=== PATIENT | male | born 1955 | race Caucasian/White ===

== ENCOUNTER 2018-01-28 08:47 | Inpatient (IN) | payer BC ==
--- NOTE | 2018-01-19 20:28 | HP ---
HISTORY AND PHYSICAL: DATE OF ADMISSION/SURGERY: 01/28/18 DATE OF OFFICE VISIT: 01/18/18 SURGEON: Lyric Sanchez MD * (DICTATED BY HUMZA KILLIAN) PROCEDURE: Left total hip arthroplasty. CHIEF COMPLAINT: Left hip pain. HISTORY OF PRESENT ILLNESS: Mr. Rapp is a 62-year-old gentleman with complaints of left hip pain. He has failed conservative treatment and elected to proceed with a left total hip arthroplasty. PAST MEDICAL HISTORY: Hyperlipidemia. PAST SURGICAL HISTORY: Skin graft on the left leg. CURRENT MEDICATIONS: Pravastatin sodium 20 mg q.h.s. ALLERGIES: None. FAMILY HISTORY: Denies. SOCIAL HISTORY: He is a 62-year-old gentleman, lives with his . He does not smoke or use drugs. Uses occasional alcohol. REVIEW OF SYSTEMS: A complete 14-point review of systems was reviewed with the patient. It was all negative or noncontributory. PHYSICAL EXAMINATION GENERAL: He is well-developed, well-nourished, in no acute distress. He is alert and oriented x3. Pleasant mood and appropriate affect. VITAL SIGNS: He stands 5 feet 4 inches tall, weighs 130 pounds, his blood pressure 142/82, and his heart rate is 64. HEENT: Normocephalic, atraumatic. NECK: Supple. No palpable lymph nodes. PULMONARY: The lungs are clear to auscultation bilaterally. CARDIO: Regular rate and rhythm. Strong S1, S2. ABDOMEN: Soft, nontender, and nondistended. MUSCULOSKELETAL: Left lower extremity: The skin is intact. There are no open wounds or abrasions. He walks with an antalgic-type gait favoring his left hip. He has decreased internal and external rotation of the left hip. He has 2 + dorsalis pedis pulse, intact sensation. His lower extremity muscle group strengths are intact at 5/5. ASSESSMENT AND PLAN: Mr. Rapp is a 62-year-old gentleman with end-stage osteoarthritis of the left hip. He has failed conservative treatment and elected to proceed with a left total hip arthroplasty, which is scheduled for with Dr. Sanchez. Dr. Sanchez discussed the risks and benefits of the surgery at today's visit and all of his questions were answered. He will follow up with Dr. Sanchez 2 weeks after the surgery. HUMZA KILLIAN [id number]/[facility] #: [id number] ELIZABETH
[~2018-01-28 08:47] MED LIST: Acetaminophen IV 1GM/100ML * 1,000 MG/100 ML VIAL IVPB ONE; Buffered Lidocaine 0.9% SYRIN* 5 ML/SYR SYRINGE INTRADERM ONE; Dexamethasone IV* 4 MG/ML 1 ML (4 MG) IV SLOW PU ONE; Famotidine TAB* 20 MG PO ONE; Gabapentin CAP(*) 300 MG PO ONE; celeCOXIB CAP* 200 MG PO ONE
--- OUTSIDE RECORDS SUMMARY | 2018-01-28 08:52 | XMS REPORT ---
:1955 External Reference #:[id number] Author Organization [facility] Address [address] [place] [address] [place] [address] Phone [phone] Care Team Providers Name Role Phone Enoc Nagy D.O. Primary Care Physician Unavailable Payers Type Date Identification Numbers Payment Provider Subscriber Commercial Policy Number: [id number] [employer] Ovidio Rapp PayID: [id number] [address] [place] [id number] Problems Date Description Provider Status Onset: 12/18/2017 Localized, primary osteoarthritis of the Lyric Sanchez M.D. Active pelvic region and thigh Social History Type Date Description Comments Smoking denies smoking Allergies, Adverse Reactions, Alerts Date Description Reaction Status Severity Comments 01/18/2018 NKDA active Medications Medication Date Status Form Strength Qnty SIG Indications Ordering Provider Pravastatin 00/00/00 Active Tablets 20mg take one Unknown Sodium 00 tablet by mouth at bedtime Vital Signs Date Vital Result Comment 01/18/2018 Height 64.5 inches 5'4.50" Weight 131.00 lb Heart Rate 64 /min BP Systolic 140 mmHg BP Diastolic 82 mmHg BMI (Body Mass Index) 22.1 kg/m2 12/18/2017 Height 64.4 inches 5'4.40" Weight 130.00 lb Heart Rate 76 /min BP Systolic 124 mmHg BP Diastolic 74 mmHg Pain Level 9 BMI (Body Mass Index) 22.0 kg/m2 Results Description No Information Procedures Description No Information Encounters Type Date Location Provider CPT E/M Dx Office Visit 12/18/2017 [facility] Sanchez M.D. [id number] M25.551 10:[facility]a [facility] M25.552 M16.11 M16.12 Office Visit 02/18/2017 3:00p [facility] M.D. 41643 M16.12 [facility] Plan of Care Future Appointment(s):02/10/2018 9:30 am - Lyric Sanchez M.D. at [facility]01/28/2018 12:30 pm - Pepe Pascal PA-C at [facility]01/28/2018 12:30 pm - HUMZA Burrows at [facility]01/28/2018 12:30 pm - Lyric Sanchez M.D. [facility]01/18/2018 - Lyric Sanchez M.D.M25.552 Pain in left hipFollow up:Follow up: 2 weeks after mpahxbsR34.12 Unilateral primary osteoarthritis, left hip
[2018-01-28] MEDS ORDERED: Dexamethasone IV* 4 MG/ML 1 ML (4 MG) ONE (09:03)
[2018-01-28] MEDS ORDERED: Famotidine TAB* 20 MG ONE (09:03)
[2018-01-28] MEDS ORDERED: Gabapentin CAP(*) 300 MG ONE (09:03)
[2018-01-28] MEDS ORDERED: celeCOXIB CAP* 100 MG ONE (09:03)
[2018-01-28] MEDS ORDERED: ceFAZolin 2 GM in NS PREMIX(*) 2 GM/100 ML BAG IVPB ONE (09:04)
[2018-01-28] MEDS ORDERED: Midazolam* 1 MG/ML 5 ML VIAL (5 MG) ONE (09:09)
[2018-01-28] MEDS ORDERED: fentaNYL* 50 MCG/ML 2 ML VIAL (100 MCG VIAL) ONE ×2 (09:09→11:14)
[2018-01-28] MEDS ORDERED: Ondansetron INJ* 2 MG/ML VIAL ONE (09:10)
[2018-01-28] MEDS ORDERED: Propofol* 10 MG/ML 20 ML BTL IV PUSH ONE (09:10)
[2018-01-28] MEDS ORDERED: Acetaminophen IV 1GM/100ML * 100 ML ONE (09:31)
[2018-01-28] MEDS ORDERED: ROPIVACAINE 5 MG/ML 30 ML BTL (0.5%) ONE ×2 (09:47→09:54)
[2018-01-28] MEDS ORDERED: Ropivacaine (OR use only) 2 MG/ML 10 ML ONE (09:54)
[2018-01-28] MEDS ORDERED: Bupivacaine 0.5% SDV PF* 30ML VIAL ONE (10:27)
[2018-01-28] MEDS ORDERED: Bupivacaine 0.25% SDV PF* 10 ML VIAL INJ ONE (11:14)
[2018-01-28] MEDS ORDERED: Morphine INJ* 2 MG/ML 1 ML SYRINGE (TWO MG - NEW SYRINGE VERSION) IV PRN (13:00)
--- NOTE | 2018-01-28 15:00 | RAD ---
HISTORY: left total hip replacement COMPARISONS: None VIEWS: 1 , Single frontal view of the pelvis FINDINGS: Single frontal portable view of the pelvis performed during hip arthroplasty at 12:06 PM demonstrates a left hip arthroplasty with a temporary femoral sizing component. IMPRESSION: LIMITED PORTABLE VIEW OF THE PELVIS TO HIP ARTHROPLASTY
--- NOTE | 2018-01-28 15:34 | RAD ---
Indication: Medial RIGHT knee patella pain for 18 months post fall. Comparison: None. Technique: RIGHT knee: AP, tunnel, lateral, sunrise views. Report: Small joint effusion. Negative for fracture or malalignment. Minimal patellofemoral joint osteophytosis without significant joint space narrowing. Unremarkable soft tissue contours. IMPRESSION: #. Small joint effusion. #. Minimal patellofemoral joint osteoarthritis.
[2018-01-28] MEDS ORDERED: Ondansetron INJ* 2 MG/ML VIAL IV PRN (20:14)
[2018-01-28] MEDS ORDERED: Warfarin TAB(*) 6 MG PO ONE (21:00)
[2018-01-28] MEDS ORDERED: oxyCODONE/Acetamin 5/325 MG* TAB ONE (22:14)
[2018-01-28] MEDS: Docusate CAP* 100 MG PO SCH (22:19)
[2018-01-28] MEDS: CMC:Pravastatin (NF) 20 MG TAB PO SCH (22:20)
[2018-01-28] MEDS: ceFAZolin 1 GM* Q8H x 3 doses IVPB SCH (22:21)
[2018-01-29] MEDS: ceFAZolin 1 GM* Q8H x 3 doses IVPB SCH ×2 (02:32→08:49)
[2018-01-29] MEDS: traMADol TAB* 50 MG PO PRN ×2 (02:36→06:33)
[2018-01-29 08:28] LABS: INR 1.12 (0.77-1.02)
[2018-01-29 08:30] LABS: ABS Basophils 0 10^3/ul (0-0.2); ABS Eosinophils 0 10^3/ul (0-0.6); ABS Lymphocytes 1.1 10^3/ul (1.0-4.8); ABS Monocytes 1.2 10^3/ul (0-0.8); ABS Neutrophils 9.8 10^3/ul (1.5-7.7); ABS Nucleated RBC 0 10^3/ul; Eosinophil % 0.1 % (0-6); Hematocrit 35 % (42-52); Lymphocyte % 9.3 % (25-47); Mean Corpuscular HGB Conc 34 g/dl (31-36); Mean Corpuscular Hemoglobin 34 pg (27-31); Mean Corpuscular Volume 98 fL (80-94); Mean Platelet Volume 8.2 um3 (7.4-10.4); Nucleated Red Blood Cells % 0; Platelet Count 238 10^3/ul (150-450); Red Blood Count 3.56 10^6/ul (4.00-5.40); Red Cell Distribution Width 13 % (10.5-15); White Blood Count 12.2 10^3/ul (3.5-10.8)
[2018-01-29 08:35] LABS: EGFR Non-African American 100.2 (>60)
[2018-01-29] MEDS: Docusate CAP* 100 MG PO SCH ×2 (08:48→22:05)
[2018-01-29] MEDS: oxyCODONE/Acetamin 5/325 MG* TAB PO PRN ×3 (08:48→18:46)
--- NOTE | 2018-01-29 09:40 | PN ---
Progress Note - Progress Note Date of Service: 01/29/18 SOAP: Subjective: POD #1 Left PANKAJ, doing well. Pain controlled. Denies CP/SOB, n/v, f/c. Did feel some lightheadedness last night while trying to ambulate Objective: Vitals: Temp Pulse Resp BP Pulse Ox 98.2 F 64 16 110/64 100 01/29/18 07:28 01/29/18 07:28 01/29/18 08:49 01/29/18 07:28 01/29/18 07:28 Gen: A&Ox3, NAD at rest laying in bed Left hip: Dressing D/I, some dried blood to mid portion. Thigh and calf soft, NT. +f/e at ankle and MTPs. N/V intact Labs: Laboratory Results - last 24 hr 01/29/1818 01/29/18 07:56 07:56 07:56 WBC 12.2 H RBC 3.56 L Hgb 12.0 L Hct 35 L MCV 98 H MCH 34 H MCHC 34 RDW 13 Plt Count 238 MPV 8.2 Neut % (Auto) 80.5 Lymph % (Auto) 9.3 L Jefferson % (Auto) 10.0 H Eos % (Auto) 0.1 Baso % (Auto) 0.1 Absolute Neuts (auto) 9.8 H Absolute Lymphs (auto) 1.1 Absolute Monos (auto) 1.2 H Absolute Eos (auto) 0 Absolute Basos (auto) 0 Absolute Nucleated RBC 0 Nucleated RBC % 0 INR (Anticoag Therapy) 1.12 H BUN 12 Creatinine 0.78 Est GFR ( Amer) 121.3 Est GFR (Non-Af Amer) 100.2 Assessment: POD #1 Left PANKAJ Plan: PT/OT with posterior hip precautions INR 1.12, Coumadin 6mg tonight with lovenox bridge Possible d/c home tomorrow
[2018-01-29] MEDS: Enoxaparin(*) 30 MG/0.3 ML SYR SUBCUT SCH (12:27)
--- NOTE | 2018-01-29 16:33 | OP ---
OPERATIVE REPORT: DATE OF OPERATION: 01/28/18 DATE OF : 51 ATTENDING SURGEON: Lyric Sanchez MD. SCRAP BALER: HUMZA Oviedo. Ms. Smith did help throughout the procedure with preparation of the leg, wound retraction, manipul ation of the hip and wound closure. ANESTHESIOLOGIST: Dr. Kenney. ANESTHESIA: Spinal. PRE-OP DIAGNOSIS: Severe endstage degenerative osteoarthritis of the left hip joint. POST-OP DIAGNOSIS: Severe endstage degenerative osteoarthritis of the left hip joint OPERATIVE PROCEDURE: Left total hip arthroplasty. BRIEF HISTORY/INDICATIONS: Mr. Rapp is a 62-year-old gentleman with years of increasingly severe left hip pain. He failed conservative treatment with antiinflammatories, pain medication and physica l therapy. Radiographs showed bone- on-bone arthritis. Due to the continued pain and decreased qual ity of life, he elected to undergo left total hip arthroplasty. Informed consent was obtained from t he patient. He understood the risks of surgery included but were not limited to bleeding, infection, damage to nearby structures, continued pain, need for further surgery, intraoperative fracture, nerv e palsy, hardware failure or loosening, dislocation, leg length discrepancy, stroke, heart attack, bl ood clot, and . He wished to proceed. ESTIMATED BLOOD LOSS: 200 cc. COMPLICATIONS: None. SPECIMEN: Femoral head and acetabular reaming sent to Pathology. HARDWARE USED: This is uncemented Miriam total hip arthroplasty hardware. For the cup, 52D Tritani um cluster hole shell; a single 20-mm screw was used. For the stem, an Accolade TMZF size 2.5 with a 127-degree neck. For the insert, a Trident X3 10-degree polyethylene insert 32D. For the head, a B iolox delta 32 +0 ceramic V40 femoral head. INTRAOPERATIVE FINDINGS: Intraoperatively, the patient was noted to have severe endstage arthritis w ith complete loss of cartilage along the femoral head and acetabulum. He was noted to have a somewha t shallow and dysplastic acetabulum. DESCRIPTION OF PROCEDURE: Mr. Rapp was identified in the preanesthesia unit. His left lower extre mity was marked as the correct operative side. Informed consent was signed and placed in the chart. The patient was taken to the operating room and placed under spinal anesthesia. A Elizondo catheter wa s placed. The patient was placed in the right lateral decubitus position on the peg board with all b anne-marie prominences well padded. Left lower extremity was prepped and draped in the usual sterile fashio n. Preop time-out was made to correctly identify the patient, side, and site. Appropriate periopera tive antibiotics were given within 1 hour of incision. A 10-cm posterior hip incision was made with a 10-blade and carried down to the lateral fascial layer . A new 10-blade was used to make lateral fascial layer incision inline with the skin incision. Rosalind sukhjinderley retractor was placed. The piriformis and conjoint tendons were elevated off the posterolateral femur using electrocautery. These were tagged with #5 Ethibond. Next, electrocautery was used to m melissa a standard posterolateral capsular flap and this is also tagged with #5 Ethibond. The hip was ca refully dislocated. Lesser trochanter center of the femoral head measured 52 mm. An oscillating saw was used to make the appropriate femoral neck cut. Femoral head was removed. The femur was retract ed anteriorly. After appropriate placement of retractors, the acetabulum was well visualized. Long-rollins ndled knife was used to sharply remove any remaining labrum from the acetabular rim. The acetabulum was sequentially reamed up to a size 51. The 51 reamer obtained bleeding subchondral bone bed. Acetabulum was noted to be shallow and dysplastic. A 51 trial had good fit with appropriat e anteversion and abduction angle. Final implant chosen was a Tritanium cluster hole shell 52D. Thi s was impacted into the acetabulum without difficulty. The cup was stable with appropriate anteversi on and abduction angle. A single 20-mm screw was placed in the superior posterior quadrant for extra stability. Next, attention was turned to preparation of the femoral canal. A canal finder was used to enter the proximal femur. Proximal femur was sequentially broached up to a size 2.5. The 2.5 broach had good fit with appropriate anteversion. A 127 neck trial was placed with a 32+0 head trial. Lesser troch to center of femoral head measured 53 mm. The hip was reduced and taken through range of motion. T he hip was stable in all positions. There was a good soft tissue tension and appropriate leg length. The hip was carefully dislocated. All trials were removed. Final implant chosen was an Accolade TMZ F size 2.5 with a 127-degree neck. This was impacted into the femoral canal. There was appropriate stability and anteversion. A Biolox delta ceramic V40 femoral head 32+0 was chosen as the correct f emoral head and impacted onto the neck. The lesser troch to center of the femoral head measured 56 m m. The hip was reduced and taken through range of motion. The hip was stable in all positions. The hip was copiously irrigated with sterile saline. Soft tissue tension and leg lengths were appropria te. The previously tagged capsule and tendons were re-approximated to the posterolateral femur through 2 trochanteric drill holes. Lateral fascial layer was closed using interrupted #1 Vicryls. The rest o f the incision was closed in a layered fashion using 0 and 2-0 Vicryls. Skin was closed using runnin g 3-0 Monocryl and Dermabond. Sterile Adaptic, 4x4s, and paper tape were used to cover the incision. The patient's anesthesia was reversed without difficulty. He was taken to the PACU in stable condi tion. Intended weightbearing will be weightbearing as tolerated. Intended DVT prophylaxis will be C oumadin with a Lovenox bridge. [id number]/[facility] #: [id number]
[2018-01-29] MEDS ORDERED: Warfarin TAB(*) 6 MG PO SCH (17:00)
[2018-01-29] MEDS: CMC:Pravastatin (NF) 20 MG TAB PO SCH (22:05)
[2018-01-29] MEDS: Magnesium Hydroxide LIQ* 30 ML UDC PO PRN (22:05)
[2018-01-30 06:21] LABS: Hematocrit 32 % (42-52); Hemoglobin 11.2 g/dl (14.0-18.0)
[2018-01-30 06:27] LABS: INR 2.27 (0.77-1.02)
--- NOTE | 2018-01-30 10:05 | PN ---
Progress Note - Progress Note Date of Service: 01/30/18 SOAP: Subjective: [Pt reports pain managed well. Still feeling some dizziness upon standing. Ivonne CP/SOB, n/v, calf pain] Objective: [A and O x3, NAD L hip dressing changed, wound benign. No drainage or erythema Calves soft, NT, distal gross motor and NV function intact. Vital Signs: Temp Pulse Resp BP Pulse Ox 98.8 F 75 16 117/61 96 01/30/18 07:35 01/30/18 07:35 01/30/18 07:35 01/30/18 07:35 01/30/18 07:35 Laboratory Results - last 24 hr 01/30/18 01/30/18 05:45 05:45 Hgb 11.2 L Hct 32 L INR (Anticoag Therapy) 2.27 H ] Assessment: [s/p L PANKAJ] Plan: [PT/OT posterior hip precautions INR 2.27 - hold Coumadin today Probable D/C home tomorrow]
[2018-01-30] MEDS: Acetaminophen TAB* 325 MG PO PRN ×2 (11:09→18:27)
[2018-01-30] MEDS: Docusate CAP* 100 MG PO SCH ×2 (11:10→20:51)
[2018-01-30] MEDS: Enoxaparin(*) 30 MG/0.3 ML SYR SUBCUT SCH (13:08)
[2018-01-30] MEDS ORDERED: Cyclobenzaprine TAB* 10 MG PO PRN (19:50)
[2018-01-30] MEDS: CMC:Pravastatin (NF) 20 MG TAB PO SCH (20:51)
[2018-01-30] MEDS: Magnesium Hydroxide LIQ* 30 ML UDC PO PRN (20:51)
[2018-01-31] MEDS: Acetaminophen TAB* 325 MG PO PRN ×2 (05:49→10:20)
[2018-01-31 06:08] LABS: Hematocrit 33 % (42-52); Hemoglobin 11.9 g/dl (14.0-18.0)
[2018-01-31 06:16] LABS: INR 1.75 (0.77-1.02)
--- NOTE | 2018-01-31 09:23 | PN ---
Progress Note - Progress Note Date of Service: 01/31/18 SOAP: Subjective: [Pt doing well. Pain managed. Denies CP/SOB, f/c, n/v, No further c/o dizziness. Feels ready to go home.] Objective: [A and O x 3, NAD At PT upon my visit L hip dressing c/d/i -- Distal gross motor, nv function intact. Calves soft, NT Vital Signs: Temp Pulse Resp BP Pulse Ox 98.1 F 65 16 126/64 96 01/31/18 07:23 01/31/18 07:23 01/31/18 08:00 01/31/18 07:23 01/31/18 07:23 Laboratory Results - last 24 hr 01/31/18 01/31/18 05:43 05:43 Hgb 11.9 L Hct 33 L INR (Anticoag Therapy) 1.75 H ] Assessment: [s/p L PANKAJ POD #3] Plan: [INR 1.75 - 4 mg coumadin tonight Percocet for pain D/C home with services F/U with Dr. Sanchez 2 weeks]
[2018-01-31] MEDS: Docusate CAP* 100 MG PO SCH (10:21)
[2018-01-31] MEDS: Enoxaparin(*) 30 MG/0.3 ML SYR SUBCUT SCH (11:35)
[2018-01-31 11:53] VITALS: BP 112/64
--- NOTE | 2018-02-02 09:14 | DS ---
DISCHARGE SUMMARY: DATE OF ADMISSION: 01/28/18 DATE OF DISCHARGE: 01/31/18 ADMITTING PHYSICIAN: Lyric Sanchez MD.* (DICTATED BY HUMZA GARNER) ADMITTING DIAGNOSES: Left hip osteoarthritis, hyperlipidemia. DISCHARGE DIAGNOSES: Status post left total hip arthroplasty, hyperlipidemia. PROCEDURE: Left total hip arthroplasty. CONSULTANTS: Physical therapy and occupational therapy. BRIEF HISTORY: Mr. Rapp is a 62-year-old male with severe degenerative osteoarthritis of his left hip. He failed conservative treatment measures and elected to undergo a left total hip arthroplasty on 01/28/[address] Sanchez. HOSPITAL COURSE: Mr. Rapp was admitted to [facility] on . He underwent an uncomplicated left total hip arthroplasty. Postoperatively , he recovered on the short stay surgical unit. His Elizondo catheter was removed on postoperative day 1 and he was able to urinate on his own. He advanced to a regular diet without difficulty and his pain was well controlled with Percocet. He did have some mild issues with dizziness upon standing during postoperative day 1 and 2, but his vital signs and labs remained stable. The dizziness resolved by postoperative day #3. He was able to bear weight as tolerated on the left lower extremity. He advanced appropriately with physical therapy and occupational therapy. His DVT prophylaxis was bridged with Lovenox and Coumadin. By postoperative day #3, he was orthopedically and medically stable for discharge home with services. PHYSICAL EXAMINATION: General: On examination, the patient is noted to be calm and cooperative, in no acute distress. He is alert and oriented x3. Vital Signs: On day of discharge, temperature 98.1 degrees Fahrenheit, pulse rate 65, respiratory rate 16, O2 sat 96% on room air, blood pressure 126/64. LABORATORY DATA: On the day of discharge, hemoglobin 11.9, hematocrit 33. INR 1.75. RADIOGRAPHS: Postoperative radiographs of the left hip demonstrate a left total hip arthroplasty with satisfactory prosthesis placement and no acute bony abnormalities. DISCHARGE MEDICATIONS: 1. Pravastatin sodium 20 mg q.h.s. 2. Coumadin 2 mg tablets, take as directed. 3. Percocet 5/325 one to two tabs, q. 4 to 6 hours p.r.n. pain. 4. Colace 100 mg p.o. t.i.d. p.r.n. constipation. CONDITION ON DISCHARGE: Stable. DISCHARGE INSTRUCTIONS: Mr. Rapp is a 62-year-old male, postoperative day #3 , status post left total hip arthroplasty, which was uncomplicated. He is orthopedically and medically stable to be discharged home with services. He has stable vital signs and labs. He has restarted his home medications. He will take 4 mg of Coumadin today, Thursday, and he will have his blood redrawn on Thursday for an INR check. He will have INR draws on Mondays and with visiting nurse services. He will remain weightbearing as tolerated on the left lower extremity and have home physical therapy twice a day. He will take Percocet for pain control and Colace up to 3 times a day for constipation. He will follow up in the office with Dr. Sanchez in 10 to 14 days for incision check. He was instructed to call Dr. Sanchez or go immediately to the ER should he develop any new fever, chills, incision pain, redness, or drainage. He was instructed to go immediately to the ER should he develop chest pain or shortness of breath. HUMZA GARNER [id number]/[facility] #: [id number] ELIZABETH
== END 2018-01-31 12:44 | disposition home or self-care (01) | DRG 301 ==
LOC: AA 08:47 → SSU 18:54
PROVIDERS: ADMIT Orthopaedic Surgery Adult Reconstructive Orthopaedic Surgery; ATTEND Orthopaedic Surgery Adult Reconstructive Orthopaedic Surgery
PROC: 0SRB04A Replacement of Left Hip Joint with Ceramic on Polyethylene Synthetic Substitute, Uncemented, Open Approach (ICD-10-PCS; principal; 2018-01-28 11:15)
DX: M16.12 Unilateral primary osteoarthritis, left hip (principal); E78.5 Hyperlipidemia, unspecified; Z79.899 Other long term (current) drug therapy
CPT/HCPCS: 36415; 82565; 84520; 85014; 85018; 85025; 85610; 88304; 88311; A9270-GY; C1713; C1776; G8978-GP-CJ; G8979-GP-CI; J0690; J1100; J1650; J2250; J2405; J2704; J2795; J3010; J3490

== ENCOUNTER 2023-01-13 09:59 | Inpatient (IN) ==
[~2023-01-13 09:59] MED LIST changes: -Acetaminophen IV 1GM/100ML * 1,000 MG/100 ML VIAL IVPB ONE; -Buffered Lidocaine 0.9% SYRIN* 5 ML/SYR SYRINGE INTRADERM ONE; +Buffered Lidocaine 1% SYRIN 1 ml INTRADERM ONE; -Dexamethasone IV* 4 MG/ML 1 ML (4 MG) IV SLOW PU ONE; -Famotidine TAB* 20 MG PO ONE; -Gabapentin CAP(*) 300 MG PO ONE; +Lactated Ringers 1000 ml BAG 1,000 ML IV SCH; -celeCOXIB CAP* 200 MG PO ONE
[2023-01-13] MEDS ORDERED: ceFAZolin 2 GM in NS PREMIX 2 GM/100 ML BAG IVPB ONE (10:42)
[2023-01-13 10:48] LABS: Rapid COVID-19 Molecular Undetected (Undetected)
[2023-01-13] MEDS ORDERED: Morphine 2 MG/ML SYRINGE IV PRN (12:12)
[2023-01-13] MEDS ORDERED: Lactulose 30 ml UDC PO PRN (12:12)
[2023-01-13] MEDS ORDERED: Magnesium Hydroxide LIQ 30 ML UDC PO PRN (12:12)
[2023-01-13] MEDS ORDERED: Ondansetron 4 mg VIAL 2 MG/ML 2 ml VIAL IV PRN (12:12)
[2023-01-13] MEDS ORDERED: Ondansetron ODT 4 mg TAB 4 MG TAB PO PRN (12:12)
[2023-01-13] MEDS ORDERED: fentaNYL 100 mcg/2 ml 50 MCG/ML VIAL ONE (12:31)
[2023-01-13] MEDS ORDERED: Midazolam 2 mg/2 ml VIAL 1 mg/ml 2 ml VIAL (2 mg) ONE (12:31)
[2023-01-13] MEDS ORDERED: Rocuronium 50 mg VIAL 10 mg/ml 5 ml VIAL (50 mg) ONE (12:31)
[2023-01-13] MEDS ORDERED: ROPIVACAINE 5 MG/ML 30 ML BTL (0.5%) ONE (14:35)
[2023-01-13] MEDS ORDERED: Propofol 10 MG/ML 20 ML BTL ONE (15:24)
[2023-01-13] MEDS ORDERED: Glycopyrrolate IV 0.2 MG/ML 1 ML VIAL ONE (15:27)
[2023-01-13] MEDS ORDERED: Sodium Chloride 0.9% 10 ML ONE (15:35)
[2023-01-13] MEDS ORDERED: Ondansetron 4 mg VIAL 2 MG/ML 2 ml VIAL ONE (15:37)
[2023-01-13] MEDS ORDERED: Dexamethasone IV 4 MG/ML VIAL 1 ml VIAL ONE (15:37)
[2023-01-13] MEDS ORDERED: hydrALAZINE 20 mg/ml 1 ML Vial IV ONE (19:26)
[2023-01-13] MEDS: Lactated Ringers 1000 ml BAG 1,000 ML IV SCH (20:11)
[2023-01-13] MEDS: Magnesium Hydroxide LIQ 30 ML UDC PO SCH (20:40)
[2023-01-13] MEDS: ceFAZolin 1 GM ADVAN 1 GM in NS 0.9% 50 ML 50 ML IVPB SCH (23:51)
[2023-01-14] MEDS: Lactated Ringers 1000 ml BAG 1,000 ML IV SCH (06:17)
[2023-01-14 06:42] LABS: Hematocrit 40.4 % (38-53); Hemoglobin 14.2 g/dL (13.2-16.3); Mean Platelet Volume 8.6 fL (7.5-11.2); Platelet Count 228 10^3/uL (150-450)
[2023-01-14 07:08] LABS: Calcium 8.4 mg/dL (8.6-10.3); Creatinine, Serum 0.77 mg/dL (0.67-1.17); Potassium 4.1 mmol/L (3.5-5.0); eGFR CKD-EPI 96.9 (>60)
[2023-01-14] MEDS: ceFAZolin 1 GM ADVAN 1 GM in NS 0.9% 50 ML 50 ML IVPB SCH ×2 (08:38→14:38)
[2023-01-14] MEDS: Magnesium Hydroxide LIQ 30 ML UDC PO SCH ×2 (08:40→22:54)
[2023-01-14] MEDS: Vitamin THERAPEUTIC TAB PO SCH (08:40)
[2023-01-14 12:38] LABS: Calcium 8.5 mg/dL (8.6-10.3)
[2023-01-14 12:44] LABS: Creatinine, Serum 0.8 mg/dL (0.67-1.17); eGFR CKD-EPI 95.8 (>60)
[2023-01-14 14:36] LABS: Urine Osmo 570 mOsm/kg (150-1150)
[2023-01-15 06:13] LABS: Hematocrit 37.2 % (38-53); Hemoglobin 13.1 g/dL (13.2-16.3); Mean Platelet Volume 8.6 fL (7.5-11.2); Platelet Count 214 10^3/uL (150-450)
[2023-01-15 09:17] LABS: Calcium 8.3 mg/dL (8.6-10.3); Potassium 4.4 mmol/L (3.5-5.0)
[2023-01-15 09:23] LABS: Creatinine, Serum 0.9 mg/dL (0.67-1.17); eGFR CKD-EPI 92.5 (>60)
[2023-01-15] MEDS: Magnesium Hydroxide LIQ 30 ML UDC PO SCH (09:23)
[2023-01-15] MEDS: Vitamin THERAPEUTIC TAB PO SCH (09:23)
[2023-01-15 10:34] VITALS: BP 154/75
== END 2023-01-15 13:50 | disposition home or self-care (01) | DRG 470 ==
LOC: AA 09:59 → SSU 20:01
PROVIDERS: ADMIT Orthopaedic Surgery Adult Reconstructive Orthopaedic Surgery; ATTEND Orthopaedic Surgery Adult Reconstructive Orthopaedic Surgery